=== PATIENT | female | born 1955 | race Caucasian/White ===

== ENCOUNTER 2018-06-08 10:39 | Day surgery (SDC) | payer OTHER, SELFPAY ==
--- NOTE | 2018-06-08 06:57 | W.COLOREPORT ---
Colonoscopy Report Date of procedure: 06/08/18 Pre-op diagnosis general: Screening for colon cancer Post-op diagnosis procedure note: other (internal hemorrhoids) Procedure: Colonoscopy Surgeon: Louise Cesar Anesthesia proc note operative: MAC (Danika Dubon CRNA) Estimated blood loss (mL): 0 Pathology: none sent Complications: None Disposition: same day Indications: Ms. Powers is a pleasant 63-year-old female who was seen in the office for a screening colonoscopy. Her last colonoscopy was 10 years ago. Risks benefits and complications were reviewed with her and she wished to proceed no guarantees were given or implied. Prep: Miralax/Dulcolax Procedure Start Time: 13:05 Procedure End Time: 13:31 Retraction Time: 8 minutes Findings: Internal hemorrhoids Procedure Description: After informed consent was obtained the patient was taken to the procedure room and placed in a left decubitous position. Monitors were applied and a time out was done. The patients name, date of , procedure, allergies to medications and metal in their body was reviewed. The patient was then sedated. Once sedated and comfortable a rectal exam was done. External exam was normal. Internal exam revealed a normal sphincter tone and no palpable masses. The scope was then introduced and retrofelexed. Grade I internal hemorrhoids were identified. The scope was then straightened and advanced to the cecum with some difficulty. her colon is very tortuous. The TI and appendiceal orifice were identified. The prep was adequate. The scope was then slowly retracted over 8 minutes back into the rectum. The scope was removed and the patient was woken up and taken back to Same day surgery in stable condition. The patient tolerated the procedure well and there were no immediate complications. Follow up: The patient should follow up in 10 years unless they develop changes in bowel habits or other new gastrointestinal complaints.
--- NOTE | 2018-06-08 06:59 | PDOC.DSDIS_ITS ---
Discharge Plan Disposition Patient Disposition: HOME Condition: Fair Discharge Details Reason For Visit: Colonoscopy Attending Provider: Louise Cesar Primary Care Provider: Martine Meneses Discharge Instructions Instructions: Colonoscopy (DC), Hemorrhoids (DC) Additional Instructions: Findings: Internal hemorrhoids Follow up: 10 years New Medications: none Please call if you develop: Fevers >101.5 Nausea or Vomiting Abdominal pain that is not transient 1. Because there will be medication in your system for the next 24 hours, you may feel a little sleepy. Your coordination will be affected. Therefore: a. Do not drive or operate dangerous equipment for 24 hours. b. Do not drink alcohol beverages for 24 hours (not even beer). c. Plan to go home and rest for the day. 2. Generally there are no restrictions on your activity after a day or so has gone by, but you may feel a bit fatigued for a few days. 3 After you arrive home you may have a light meal and return to a normal diet as you can tolerate it without feeling sick to your stomach. 4. After surgery, you may feel pain or discomfort. This should be only transient , but if it persists please contact your doctor. 5. If there are any questions regarding the findings of your procedure, please feel free to contact your doctor. 6. If you are unable to contact your doctor with a problem, contact the hospital at [phone]. 7. Continue all your regular medications unless directed otherwise. I understand the above instructions and have no questions. Signature of Patient or Responsible Adult Escort Date/Time Name of Responsible Adult Escort Signature of Nurse Date/Time Activity:: Activity as Tolerated Diet:: regular diet Discharge Orders Discharge Orders: Discharge Order (Routine); Ordered 06/08/18 Ordered By: Louise Cesar
[2018-06-08 10:55] VITALS: BP 142/82; PULSE 65; RESP 16; TEMP 36.7; O2SAT 100
[2018-06-08] MEDS: Lactated Ringers 1,000 ML 80 ML IV (11:26)
[2018-06-08 14:04] VITALS: BP 115/68; PULSE 77; RESP 20; TEMP 36; O2SAT 100
== END 2018-06-08 14:17 | disposition home or self-care (01) ==
PROVIDERS: PCP Family Medicine; Visit Provider Surgery
PROC: 0DJD8ZZ Inspection of Lower Intestinal Tract, Via Natural or Artificial Opening Endoscopic (ICD-10-PCS; CPT 45378; principal; 2018-06-08 13:00)
DX: Z12.11 Encounter for screening for malignant neoplasm of colon (principal); K64.0 First degree hemorrhoids
CPT/HCPCS: 45378